=== PATIENT | female | born 1990 | race Caucasian/White ===

== ENCOUNTER 2016-12-07 12:56 | Emergency (ER) | payer MEDICAID ==
[~2016-12-07] VITALS: Ht 160 cm; Wt 85.8 kg
[~2016-12-07 12:56] MED LIST: AUGM875T PO
[2016-12-07 13:00] VITALS: BP 124/84; PULSE 88; RESP 16; TEMP 98.2; O2SAT 99
[2016-12-07 13:19] LABS: BLOOD, URINE NEG (NEG); GLUCOSE,URINE NEG (NEG); KETONE, URINE NEG (NEG); NITRITE,URINE NEG (NEG)
[2016-12-07 13:25] LABS: METHOD OF COLLECTION CLEAN CATCH; URINE COLOR YELLOW (YELLW/STRAW)
[2016-12-07 13:26] LABS: BACTERIA, URINE FEW /hpf; COMMENT (UR) CULT NOT INDICATED; CULTURE IF INDICATED CULT NOT INDICATED; MUCUS URINE MANY /lpf (OCC); SQUAMOUS EPITHELIAL CELL URINE >8 /hpf (0-5); WBC, URINE 0-2 /hpf (0-5)
[2016-12-07] MEDS ORDERED: KETOROLAC TROMETHAMINE 30 MG/ML (IVP) VIAL IV PUSH ONE (13:30)
[2016-12-07] MEDS ORDERED: SODIUM CHLOR 0.9% 1000 ML INJ 1,000 ML IV ONE (13:30)
[2016-12-07 13:50] LABS: AUTOMATED NEUTROPHIL # 10.7 TH/MM3 (1.8-7.7); BASOPHIL # 0.1 TH/MM3 (0-0.2); BASOPHIL % 0.4 % (0.0-2.0); EOSINOPHIL # 0.3 TH/MM3 (0-0.4); EOSINOPHIL % 2.4 % (0.0-4.0); HEMATOCRIT 41.4 % (35.0-46.0); HEMO FLAGS DIFF FINAL; LYMPH % 14.4 % (9.0-44.0); LYMPHOCYTE # 1.9 TH/MM3 (1.0-4.8); MEAN CELL VOLUME 87.4 FL (80.0-100.0); MEAN CORPUSCULAR HEMOGLOBIN 30.3 PG (27.0-34.0); MEAN CORPUSCULAR HGB CONC 34.7 % (32.0-36.0); MONO % 3.7 % (0.0-8.0); NEUT % 79.1 % (16.0-70.0); PLATELET COUNT 316 TH/MM3 (150-450); RED BLOOD COUNT 4.74 MIL/MM3 (4.00-5.30); RED CELL DISTRIBUTION WIDTH 12.9 % (11.6-17.2); WHITE BLOOD COUNT 13.5 TH/MM3 (4.0-11.0)
[2016-12-07 13:57] LABS: POTASSIUM 3.8 MEQ/L (3.5-5.1)
[2016-12-07 14:00] LABS: BICARBONATE 25.9 MEQ/L (21.0-32.0)
--- NOTE | 2016-12-07 14:11 | RADHPO ---
EXAM DATE/TIME: 12/07/2016 13:38 [facility] COMPARISON: CT ABDOMEN & PELVIS W/O CONTRAST, April 02, 2015, 12:00. INDICATIONS : Left flank pain. ORAL CONTRAST: No oral contrast ingested. RADIATION DOSE: 24.37 CTDIvol (mGy) MEDICAL HISTORY : None SURGICAL HISTORY : Orthopedic surgery. ENCOUNTER: Initial ACUITY: 2 days PAIN SCALE: 4/10 LOCATION: Left flank TECHNIQUE: Volumetric scanning of the abdomen and pelvis was performed. Using automated exposure control and ad justment of the mA and/or kV according to patient size, radiation dose was kept as low as reasonably achievable to obtain optimal diagnostic quality images. FINDINGS: LOWER LUNGS: The visualized lower lungs are clear. LIVER: Homogeneous density without lesion. There is no dilation of the biliary tree. No calcified gallston es. SPLEEN: Normal size without lesion. PANCREAS: Within normal limits. KIDNEYS: Normal in size and shape. There is no hydronephrosis. There are no right renal calculi. There are 2 small 1 mm nonobstructing left renal calculi. The ureters are unremarkable. ADRENAL GLANDS: Within normal limits. VASCULAR: There is no aortic aneurysm. BOWEL/MESENTERY: The stomach, small bowel, and colon demonstrate no acute abnormality. There is no free intraperitone al air. Small amount of fluid is again noted in the cul-de-sac. This is not significantly changed fro m the prior study. ABDOMINAL WALL: Within normal limits. RETROPERITONEUM: There is no lymphadenopathy. BLADDER: No wall thickening or mass. REPRODUCTIVE: Within normal limits. INGUINAL: There is no lymphadenopathy or hernia. MUSCULOSKELETAL: Within normal limits for patient age. CONCLUSION: 1. 2 small nonobstructing left renal calculi with no evidence of hydronephrosis. 2. Small amount of fluid in the pelvis not significantly changed from the prior study. Ramiro Montague MD on December 07, 2016 at 13:56 Board Certified Radiologist. This report was verified electronically.
[2016-12-07 14:26] VITALS: BP 103/61; PULSE 83; RESP 18; O2SAT 98
[2016-12-07] MEDS ORDERED: TAMS5CAP PO (14:49)
[2016-12-07] MEDS ORDERED: IBUP-232 PO (14:49)
[2016-12-07] MEDS ORDERED: NORC5TAB PO (14:49)
--- NOTE | 2016-12-07 14:50 | PD ---
HPI Chief Complaint: Flank/Kidney Pain Time Seen by Provider: 13:11 Travel History International Travel<30 days: No Contact w/Intl Traveler<30days: No Traveled to known affect area: No History of Present Illness HPI Patient is a 26 year old female who comes in complaining of left flank pain. She says the pain started 2 days ago. She says it similar to pain she's had in the past with kidney stones. She says the pain does not radiate anywhere. She denies any nausea or vomiting. She denies any dysuria. She denies any hematuria. She took some Tylenol yesterday for pain without relief. PFSH Past Medical History Cancer: No Diminished Hearing: No Endocrine: No Genitourinary: Yes Immune Disorder: No Kidney Stones: Yes Musculoskeletal: No Neurologic: No Psychiatric: No Reproductive: No Respiratory: No Immunizations Current: Yes (UTD) Migraines: Yes Tetanus Vaccination: < 5 Years Influenza Vaccination: No ?: Not LMP: 04 30-17 Menopausal: No : 3 Para: 3 Social History Alcohol Use: No Tobacco Use: Yes (1/2 PK) Substance Use: No Allergies-Medications (Allergen,Severity, Reaction): Coded Allergies: No Known Allergies (Verified , 12/07/16) Reported Meds & Prescriptions Reported Meds & Active Scripts Active Cantrall (Hydrocodone-Acetaminophen) 5-325 mg Tab 1 Tab PO Q6H PRN Ibuprofen 600 Mg Tab 600 Mg PO Q6H PRN Flomax (Tamsulosin HCl) 0.4 Mg Cap 0.4 Mg PO HS Review of Systems Except as stated in HPI: all other systems reviewed are Neg General / Constitutional: No: Fever, Chills HENT: No: Headaches, Lightheadedness Cardiovascular: No: Chest Pain or Discomfort Respiratory: No: Shortness of Breath Gastrointestinal: No: Nausea, Vomiting, Abdominal Pain Genitourinary: Positive: Flank Pain, No: Dysuria Musculoskeletal: No: Myalgias Skin: No Rash, No Change in Pigmentation Neurologic: No: Weakness, Dizziness Physical Exam Narrative GENERAL: Awake and alert, in no acute distress. SKIN: Focused skin assessment warm/dry. HEAD: Atraumatic. Normocephalic. EYES: Pupils equal and round. No scleral icterus. ENT: Mucous membranes pink and moist. NECK: Trachea midline. No JVD. CARDIOVASCULAR: Regular rate and rhythm. No murmur appreciated. RESPIRATORY: No accessory muscle use. Clear to auscultation. Breath sounds equal bilaterally. GASTROINTESTINAL: Abdomen soft, non-tender, nondistended. Left CVA tenderness. MUSCULOSKELETAL: No obvious deformities. No clubbing. No cyanosis. No edema. NEUROLOGICAL: Awake and alert. No obvious cranial nerve deficits. Motor grossly within normal limits. Normal speech. PSYCHIATRIC: Appropriate mood and affect; insight and judgment normal. Data Data Last Documented VS Vital Signs Date Time Temp Pulse Resp B/P Pulse Ox O2 Delivery O2 Flow Rate FiO2 12/07/16 14:26 83 18 103/61 98 Room Air 12/07/16 13:00 98.2 Orders Urinalysis - C+S If Indicated (12/07/16 13:11) Ed Urine Pregnancytest Poc (12/07/16 13:11) Complete Blood Count With Diff (12/07/16 13:16) Basic Metabolic Panel (Bmp) (12/07/16 13:16) Ct Abd/Pel W/O Iv Contrast (12/07/16 ) Ketorolac Inj (Toradol Inj) (12/07/16 13:30) Sodium Chlor 0.9% 1000 Ml Inj (Ns 1000 M (12/07/16 13:30) Labs Laboratory Tests Test 12/07/16 12/07/16 13:05 13:10 Urine Collection Type CLEAN CATCH Urine Color YELLOW Urine Turbidity CLEAR Urine pH 6.0 Urine Specific [place] 1.025 Urine Protein NEG mg/dL Urine Glucose (UA) NEG mg/dL Urine Ketones NEG mg/dL Urine Occult Blood NEG Urine Nitrite NEG Urine Bilirubin NEG Urine Leukocyte Esterase TRACE Urine WBC 0-2 /hpf Urine Squamous Epithelial >8 /hpf Cells Urine Bacteria FEW /hpf Urine Mucus MANY /lpf Microscopic Urinalysis Comment CULT NOT INDICATED White Blood Count 13.5 TH/MM3 Red Blood Count 4.74 MIL/MM3 Hemoglobin 14.4 GM/DL Hematocrit 41.4 % Mean Corpuscular Volume 87.4 FL Mean Corpuscular Hemoglobin 30.3 PG Mean Corpuscular Hemoglobin 34.7 % Concent Red Cell Distribution Width 12.9 % Platelet Count 316 TH/MM3 Mean Platelet Volume 8.4 FL Neutrophils (%) (Auto) 79.1 % Lymphocytes (%) (Auto) 14.4 % Monocytes (%) (Auto) 3.7 % Eosinophils (%) (Auto) 2.4 % Basophils (%) (Auto) 0.4 % Neutrophils # (Auto) 10.7 TH/MM3 Lymphocytes # (Auto) 1.9 TH/MM3 Monocytes # (Auto) 0.5 TH/MM3 Eosinophils # (Auto) 0.3 TH/MM3 Basophils # (Auto) 0.1 TH/MM3 CBC Comment DIFF FINAL Differential Comment Sodium Level 140 MEQ/L Potassium Level 3.8 MEQ/L Chloride Level 106 MEQ/L Carbon Dioxide Level 25.9 MEQ/L Anion Gap 8 MEQ/L Blood Urea Nitrogen 10 MG/DL Creatinine 0.61 MG/DL Estimat Glomerular Filtration 121 ML/MIN Rate Random Glucose 88 MG/DL Calcium Level 8.8 MG/DL MDM Medical Decision Making Medical Screen Exam Complete: Yes Emergency Medical Condition: Yes Medical Record Reviewed: Yes Differential Diagnosis UTI versus pyelonephritis versus kidney stone Narrative Course Patient is a 26-year-old female comes in complaining of left-sided flank pain. Exam shows left CVA tenderness. IV established, labs sent. Labs show normal creatinine. CT abdomen and pelvis performed shows 2 small nonobstructing stones. Patient given IV fluids and Toradol. She reports feeling better. Patient will be discharged with prescriptions for ibuprofen, Cantrall for severe pain, Flomax. She is advised to drink plenty of fluids. Advised follow-up with urology. Advised to return to the ED as needed for any worsening symptoms. Last 24 hours Impressions Abdomen/Pelvis CT 12/07/16 0000 Signed Impressions: Service Date/Time: Wednesday, December 07, 2016 13:38 - CONCLUSION: 1. 2 small nonobstructing left renal calculi with no evidence of hydronephrosis. 2. Small amount of fluid in the pelvis not significantly changed from the prior study. Ramiro Montague MD Diagnosis Primary Impression: Renal stone Referrals: Mir Dominguez MD call for appointment Patient Instructions: General Instructions, Kidney Stones (ED) Additional Instructions: Follow up with urology. Take Ibuprofen for pain, Cantrall for severe pain. Drink plenty of fluids. Return to the ED as needed for any worsening symptoms. Scripts Hydrocodone-Acetaminophen (Cantrall)5-325 mg Tab1 Tab PO Q6H PRN (PAIN) #10 TAB Ref 0 Prov:Gela Howe MD 12/07/16 Ibuprofen 600 Mg [id number] Mg PO Q6H PRN (Pain/Inflammation) #20 TAB Ref 0 Prov:Gela Howe MD 12/07/16 Tamsulosin (Flomax)0.4 Mg Cap0.4 Mg PO HS #7 CAP Ref 0 Prov:Gela Howe MD 12/07/16 Disposition: 01 DISCHARGE HOME Condition: Stable Gela Howe MD December 07, 2016 14:49
== END 2016-12-07 15:18 | disposition home or self-care (01) ==
LOC: PHED 12:56
DX: N20.0 Calculus of kidney (principal); F17.210 Nicotine dependence, cigarettes, uncomplicated
CPT/HCPCS: 74176; 80048; 81001; 84703; 85025; 96374; 99285; J1885; J7030

== ENCOUNTER 2017-02-10 18:44 | Emergency (ER) | payer MEDICAID ==
[~2017-02-10] VITALS: Ht 172.7 cm; Wt 68.0 kg
[~2017-02-10 18:44] MED LIST changes: -AUGM875T PO; +IBUP-232 PO; +NORC5TAB PO; +TAMS5CAP PO
[2017-02-10 18:46] VITALS: BP 127/73; PULSE 86; RESP 20; TEMP 98.1; O2SAT 98
--- NOTE | 2017-02-10 21:59 | PD ---
HPI Chief Complaint: Flank/Kidney Pain Time Seen by Provider: 21:23 Travel History International Travel<30 days: No Contact w/Intl Traveler<30days: No Traveled to known affect area: No History of Present Illness HPI This patient reports that she thinks she may have a kidney stone. She complains of some left flank pain for 2 days. Symptoms severity is mild to moderate. No fever or injury. She has history of multiple kidney stones. She also thinks she might be . She took 2 home tests and one was positive and one was negative. She says if she is she wants to have an . No alleviating factors. PFSH Past Medical History Cancer: No Diminished Hearing: No Endocrine: No Genitourinary: Yes Immune Disorder: No Kidney Stones: Yes Musculoskeletal: No Neurologic: No Psychiatric: No Reproductive: No Respiratory: No Immunizations Current: Yes (UTD) Migraines: Yes Menopausal: No : 3 Para: 3 Social History Alcohol Use: No Tobacco Use: Yes (/2 PK) Substance Use: No Allergies-Medications (Allergen,Severity, Reaction): Coded Allergies: No Known Allergies (Verified , 02/10/17) Reported Meds & Prescriptions Reported Meds & Active Scripts Active Review of Systems General / Constitutional: No: Fever Eyes: No: Visual changes HENT: No: Headaches Cardiovascular: No: Chest Pain or Discomfort Respiratory: No: Shortness of Breath Gastrointestinal: No: Abdominal Pain Genitourinary: Positive: Flank Pain, No: Dysuria Musculoskeletal: No: Pain Skin: No Rash Neurologic: No: Weakness Psychiatric: No: Depression Endocrine: No: Polydipsia Hematologic/Lymphatic: No: Easy Bruising Physical Exam Narrative GENERAL: Well-nourished, well-developed patient in no apparent distress. SKIN: Focused skin assessment reveals no rash and nodules. Skin is Warm and dry. HEAD: Atraumatic. Normocephalic. EYES: Pupils equal and round. No scleral icterus. No injection or drainage. ENT: No nasal bleeding or discharge. Mucous membranes pink and moist. NECK: Trachea midline. No JVD. CARDIOVASCULAR: Regular rate and rhythm. No murmur appreciated. RESPIRATORY: No accessory muscle use. Clear to auscultation. Breath sounds equal bilaterally. GASTROINTESTINAL: Abdomen soft, non-tender, nondistended. Hepatic and splenic margins not palpable. MUSCULOSKELETAL: No obvious deformities. No clubbing. No cyanosis. No edema. NEUROLOGICAL: Awake and alert. No obvious cranial nerve deficits. Motor grossly within normal limits. Normal speech. PSYCHIATRIC: Appropriate mood and affect; insight and judgment normal. Data Data Last Documented VS Vital Signs Date Time Temp Pulse Resp B/P Pulse Ox O2 Delivery O2 Flow Rate FiO2 02/10/17 22:02 76 18 112/62 99 Room Air 02/10/17 18:46 98.1 Orders Urinalysis - C+S If Indicated (02/10/17 19:36) Ed Urine Pregnancytest Poc (02/10/17 21:49) Labs Laboratory Tests Test 02/10/17 21:15 Urine Color LIGHT-YELLOW Urine Turbidity CLEAR Urine pH 7.5 Urine Specific [place] 1.012 Urine Protein NEG mg/dL Urine Glucose (UA) NEG mg/dL Urine Ketones NEG mg/dL Urine Occult Blood NEG Urine Nitrite NEG Urine Bilirubin NEG Urine Urobilinogen LESS THAN 2.0 MG/DL Urine Leukocyte Esterase SMALL Urine RBC 2 /hpf Urine WBC 1 /hpf Urine Squamous Epithelial 1 /hpf Cells Microscopic Urinalysis Comment CULT NOT INDICATED MDM Medical Decision Making Medical Screen Exam Complete: Yes Emergency Medical Condition: Yes Medical Record Reviewed: Yes Differential Diagnosis Kidney stone, sciatica, UTI Narrative Course I have reviewed the patient's electronic medical record. Urinalysis is normal Urine is positive Patient looks asymptomatic on recheck. Stable for outpatient follow-up I recommended TECHNOLOGY CONSULTANT follow-up Diagnosis Primary Impression: Patient currently Qualified Code: Z3A.01 - Less than 8 weeks gestation of Additional Impression: Acute left flank pain Additional Instructions: Follow-up with TECHNOLOGY CONSULTANT Med/Other Pt SpecificInfo: Other Disposition: 01 DISCHARGE HOME Condition: Stable Dannie Smith MD Feb 10, 2017 21:59
[2017-02-10 22:02] VITALS: BP 112/62; PULSE 76; RESP 18; O2SAT 99
[2017-02-10 22:20] LABS: BLOOD, URINE NEG (NEG); COMMENT (UR) CULT NOT INDICATED; CULTURE IF INDICATED CULT NOT INDICATED; GLUCOSE,URINE NEG (NEG); KETONE, URINE NEG (NEG); NITRITE,URINE NEG (NEG); PH, URINE 7.5 (5.0-8.5); SQUAMOUS EPITHELIAL CELL URINE 1 /hpf (0-5); URINE COLOR LIGHT-YELLOW (YELLW/STRAW)
== END 2017-02-10 23:13 | disposition home or self-care (01) ==
LOC: NEPD 18:44
DX: O26.899 Other specified pregnancy related conditions, unspecified trimester (principal); R10.9 Unspecified abdominal pain; Z3A.01 Less than 8 weeks gestation of pregnancy; Z87.442 Personal history of urinary calculi; O99.334 Smoking (tobacco) complicating childbirth
CPT/HCPCS: 81001; 84703; 99283

== ENCOUNTER 2017-02-14 11:54 | Emergency (ER) | payer MEDICAID ==
[2017-02-14 12:02] VITALS: BP 138/86; PULSE 68; RESP 18; TEMP 98.2; O2SAT 98
[2017-02-14] MEDS ORDERED: ONDANSETRON ODT 4 MG TAB PO ONE (12:30)
--- NOTE | 2017-02-14 12:43 | PD ---
HPI Chief Complaint: GI Complaint Time Seen by Provider: 12:21 Travel History International Travel<30 days: No Contact w/Intl Traveler<30days: No Traveled to known affect area: No History of Present Illness HPI Patient presents with complaints of hyperemesis. Symptom onset 2 weeks. States she 2 or 3 weeks . 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 She is compliant with vitamins. Denies any urinary or bowel symptoms. Denies any chest pain or shortness of breath. PFSH Past Medical History Cancer: No Diminished Hearing: No Endocrine: No Genitourinary: Yes Immune Disorder: No Kidney Stones: Yes Musculoskeletal: No Neurologic: No Psychiatric: No Reproductive: No Respiratory: No Immunizations Current: Yes (UTD) Migraines: Yes ?: LMP: 12/31/16 Menopausal: No : 4 Para: 3 Past Surgical History Other Surgery: Yes (kidney stone sx pt unsure what it was) Social History Alcohol Use: No Tobacco Use: No Substance Use: No Allergies-Medications (Allergen,Severity, Reaction): Coded Allergies: No Known Allergies (Verified , 02/14/17) Reported Meds & Prescriptions Reported Meds & Active Scripts Active No Active Prescriptions or Reported Medications Review of Systems General / Constitutional: No: Fever Eyes: No: Visual changes HENT: No: Headaches Cardiovascular: No: Chest Pain or Discomfort Respiratory: No: Shortness of Breath Gastrointestinal: Positive: Nausea, Vomiting, No: Abdominal Pain Genitourinary: No: Dysuria Musculoskeletal: No: Pain Skin: No Rash Neurologic: No: Weakness Psychiatric: No: Depression Endocrine: No: Polydipsia Hematologic/Lymphatic: No: Easy Bruising Physical Exam Narrative GENERAL: Well-nourished, well-developed patient. SKIN: Focused skin assessment warm/dry. HEAD: Normocephalic. EYES: No scleral icterus. No injection or drainage. NECK: Supple, trachea midline. No JVD or lymphadenopathy. CARDIOVASCULAR: Regular rate and rhythm without murmurs, gallops, or rubs. RESPIRATORY: Breath sounds equal bilaterally. No accessory muscle use. GASTROINTESTINAL: Abdomen soft, non-tender, nondistended. MUSCULOSKELETAL: No cyanosis, or edema. BACK: Nontender without obvious deformity. No CVA tenderness. Data Data Last Documented VS Vital Signs Date Time Temp Pulse Resp B/P Pulse Ox O2 Delivery O2 Flow Rate FiO2 02/14/17 12:02 98.2 68 18 138/86 98 Orders Urinalysis - C+S If Indicated (02/14/17 11:59) Ondansetron Odt (Zofran Odt) (02/14/17 12:30) Labs Laboratory Tests Test 02/14/17 12:50 Urine Collection Type CLEAN CATCH Urine Color YELLOW Urine Turbidity CLEAR Urine pH 8.0 Urine Specific [place] 1.014 Urine Protein NEG mg/dL Urine Glucose (UA) NEG mg/dL Urine Ketones NEG mg/dL Urine Occult Blood NEG Urine Nitrite NEG Urine Bilirubin NEG Urine Leukocyte Esterase TRACE Urine WBC 0-2 /hpf Urine Squamous Epithelial 6-8 /hpf Cells Microscopic Urinalysis Comment CULT NOT INDICATED Urine Collection Time 12:50 MDM Medical Decision Making Medical Screen Exam Complete: Yes Emergency Medical Condition: Yes Differential Diagnosis Hyperemesis gravidarum, enteritis, reflux Narrative Course Assessment and plan discussed with patient at bedside. Zofran provided, tolerated fluid challenge Diagnosis Primary Impression: Hyperemesis gravidarum Patient Instructions: General Instructions Additional Instructions: Rest fluids and Tylenol as needed anti-emetic as needed. Follow-up with OB. Start vitamin. Return to the ER with any onset of new symptoms Med/Other Pt SpecificInfo: Prescription(s) given Scripts Ondansetron Odt (Zofran Odt)4 Mg Tab4 Mg SL Q6HR PRN (Nausea/Vomiting) #20 TAB Ref 0 Prov:Praveen Higgins MD 02/14/17 Disposition: 01 DISCHARGE HOME Condition: Good Praveen Higgins MD Feb 14, 2017 12:43
[2017-02-14 12:58] LABS: BLOOD, URINE NEG (NEG); GLUCOSE,URINE NEG (NEG); KETONE, URINE NEG (NEG); NITRITE,URINE NEG (NEG)
[2017-02-14 13:03] LABS: METHOD OF COLLECTION CLEAN CATCH; URINE COLOR YELLOW (YELLW/STRAW)
[2017-02-14 13:04] LABS: COMMENT (UR) CULT NOT INDICATED; CULTURE IF INDICATED CULT NOT INDICATED; WBC, URINE 0-2 /hpf (0-5)
[2017-02-14] MEDS ORDERED: ZOFR4TAB3 SL (13:46)
[2017-02-14 13:54] VITALS: BP 128/68
== END 2017-02-14 13:58 | disposition home or self-care (01) ==
LOC: PHED 11:54
DX: O21.0 Mild hyperemesis gravidarum (principal); Z3A.01 Less than 8 weeks gestation of pregnancy
CPT/HCPCS: 81001; 99283

== ENCOUNTER 2017-05-26 21:26 | Emergency (ER) | payer MEDICAID ==
[~2017-05-26] VITALS: Ht 160 cm; Wt 85.0 kg
[~2017-05-26 21:26] MED LIST changes: -IBUP-232 PO; -NORC5TAB PO; -TAMS5CAP PO; +ZOFR4TAB3 SL
[2017-05-26 21:33] VITALS: BP 122/82; PULSE 100; RESP 20; TEMP 97.8; O2SAT 98
[2017-05-26] MEDS ORDERED: SODIUM CHLOR 0.9% 1000 ML INJ 1,000 ML IV SCH (21:47)
--- NOTE | 2017-05-26 21:55 | PD ---
HPI Chief Complaint: Flank/Kidney Pain Time Seen by Provider: 21:40 Travel History International Travel<30 days: No Contact w/Intl Traveler<30days: No Traveled to known affect area: No History of Present Illness HPI 26-year-old female complains of bilateral flank pain and urinary frequency. Patient states that the symptoms started this afternoon. Patient denies any headache. Patient denies any chest pain or shortness of breath. Patient denies abdominal pain. Patient states the pain localized to mid back bilateral flank area. Patient states the pain has been intermittent cramping pain. Patient denies any pain radiation. Patient states the pain is worse with movement. Patient denies any focal weakness or numbness of extremity. Patient denies any chance of being . Patient has history kidney stone in the past. PFSH Past Medical History Cancer: No Diminished Hearing: No Endocrine: No Genitourinary: Yes Immune Disorder: No Kidney Stones: Yes Musculoskeletal: No Neurologic: No Psychiatric: No Reproductive: No Respiratory: No Immunizations Current: Yes (UTD) Migraines: Yes Menopausal: No : 4 Para: 3 Past Surgical History Other Surgery: Yes (kidney stone sx pt unsure what it was) Social History Alcohol Use: No Tobacco Use: No Substance Use: No Allergies-Medications (Allergen,Severity, Reaction): Coded Allergies: No Known Allergies (Verified Adverse Reaction, Unknown, 05/26/17) Reported Meds & Prescriptions Reported Meds & Active Scripts Active Review of Systems General / Constitutional: No: Fever Eyes: No: Visual changes HENT: No: Headaches Cardiovascular: No: Chest Pain or Discomfort Respiratory: No: Shortness of Breath Gastrointestinal: No: Abdominal Pain Genitourinary: No: Dysuria Musculoskeletal: No: Pain Skin: No Rash Neurologic: No: Weakness Psychiatric: No: Depression Endocrine: No: Polydipsia Hematologic/Lymphatic: No: Easy Bruising Physical Exam Narrative GENERAL: Well-nourished, well-developed patient. SKIN: Focused skin assessment warm/dry. HEAD: Normocephalic. EYES: No scleral icterus. No injection or drainage. NECK: Supple, trachea midline. No JVD or lymphadenopathy. CARDIOVASCULAR: Regular rate and rhythm without murmurs, gallops, or rubs. RESPIRATORY: Breath sounds equal bilaterally. No accessory muscle use. GASTROINTESTINAL: Abdomen soft, non-tender, nondistended. MUSCULOSKELETAL: No cyanosis, or edema. BACK: Patient has mild to moderate tenderness on palpation lower thoracic and upper lumbar area especially the right flank area without obvious deformity. Neurologic exam normal. Data Data Last Documented VS Vital Signs Date Time Temp Pulse Resp B/P (MAP) Pulse Ox O2 Delivery O2 Flow Rate FiO2 05/26/17 22:38 20 05/26/17 21:33 97.8 100 122/82 (95) 98 Orders Orders Complete Blood Count With Diff (05/26/17 21:47) Comprehensive Metabolic Panel (05/26/17 21:47) Urinalysis - C+S If Indicated (05/26/17 21:47) Ct Abd/Pel W/O Iv Contrast (05/26/17:47) Oximetry (05/26/17:47) Sodium Chlor 0.9% 1000 Ml Inj (Ns 1000 M (05/26/17 21:47) Sodium Chloride 0.9% Flush (Ns Flush) (05/26/17 22:00) Ketorolac Inj (Toradol Inj) (05/26/17 22:00) Ed Urine Pregnancytest Poc (05/26/17 22:01) Urine Culture (05/26/17 22:05) Ed Discharge Order (05/26/17 23:41) Labs Laboratory Tests Test 05/26/17 22:05 05/26/17 22:10 Urine Color STRAW Urine Turbidity CLOUDY Urine pH 7.0 Urine Specific [place] 1.022 Urine Protein NEG mg/dL Urine Glucose (UA) NEG mg/dL Urine Ketones NEG mg/dL Urine Occult Blood TRACE Urine Nitrite NEG Urine Bilirubin NEG Urine Leukocyte Esterase MOD Urine RBC 0-3 /hpf Urine WBC 9-14 /hpf Urine Squamous Epithelial Cells > 8 /hpf Urine Amorphous Sediment MOD Urine Bacteria FEW /hpf Microscopic Urinalysis Comment CULTURE INDICATED White Blood Count 12.5 TH/MM3 Red Blood Count 5.13 MIL/MM3 Hemoglobin 15.3 GM/DL Hematocrit 45.1 % Mean Corpuscular Volume 87.9 FL Mean Corpuscular Hemoglobin 29.8 PG Mean Corpuscular Hemoglobin Concent 33.9 % Red Cell Distribution Width 12.4 % Platelet Count 380 TH/MM3 Mean Platelet Volume 8.0 FL Neutrophils (%) (Auto) 74.4 % Lymphocytes (%) (Auto) 18.9 % Monocytes (%) (Auto) 4.2 % Eosinophils (%) (Auto) 1.9 % Basophils (%) (Auto) 0.6 % Neutrophils # (Auto) 9.3 TH/MM3 Lymphocytes # (Auto) 2.4 TH/MM3 Monocytes # (Auto) 0.5 TH/MM3 Eosinophils # (Auto) 0.2 TH/MM3 Basophils # (Auto) 0.1 TH/MM3 CBC Comment DIFF FINAL Differential Comment Blood Urea Nitrogen 14 MG/DL Creatinine 0.69 MG/DL Random Glucose 94 MG/DL Total Protein 8.3 GM/DL Albumin 4.1 GM/DL Calcium Level 9.0 MG/DL Alkaline Phosphatase 86 U/L Aspartate Amino Transf (AST/SGOT) 14 U/L Alanine Aminotransferase (ALT/SGPT) 30 U/L Total Bilirubin 0.2 MG/DL Sodium Level 138 MEQ/L Potassium Level 3.5 MEQ/L Chloride Level 102 MEQ/L Carbon Dioxide Level 32.2 MEQ/L Anion Gap 4 MEQ/L Estimat Glomerular Filtration Rate 105 ML/MIN MDM Medical Decision Making Medical Screen Exam Complete: Yes Emergency Medical Condition: Yes Interpretation(s) 22:50 PM. CBC WBC 12.5. 74 neutrophil. CMP within normal limit. UA positive for WBC and bacteria. Urine test negative. Differential Diagnosis Differential diagnosis including musculoskeletal, pyelonephritis, nephrolithiasis. Narrative Course 26-year-old female with bilateral flank pain especially right flank. History of kidney stone in the past. Normal saline solution 1 25 cc an hour. Toradol 30 mg IV. Diagnosis Primary Impression: Back pain Qualified Codes: M54.9 - Dorsalgia, unspecified Additional Impression: UTI (urinary tract infection) Patient Instructions: General Instructions Additional Instructions: Take medications as directed. Moist heat to the back. Follow-up with personal physician. Return if worse. Med/Other Pt SpecificInfo: Prescription(s) given Scripts Methocarbamol (Robaxin) 750 Mg Tab 750 MG PO QID for Muscle Spasm, #40 TAB 0 Refills Prov: William Kang MD 05/26/17 Meloxicam (Mobic) 15 Mg Tab 15 MG PO DAILY for Pain, #20 TAB 0 Refills Prov: William Kang MD 05/26/17 Sulfamethoxazole-Trimethoprim (Bactrim DS) 800-160 Mg Tab 1 TAB PO BID for Infection, #6 TAB 0 Refills Prov: William Kang MD 05/26/17 Disposition: 01 DISCHARGE HOME Condition: Stable William Kang MD May 26, 2017 21:55
[2017-05-26] MEDS ORDERED: KETOROLAC TROMETHAMINE 30 MG/ML (IVP) VIAL IVP ONE (22:00)
[2017-05-26] MEDS ORDERED: SODIUM CHLORIDE 0.9% FLUSH 10 ML FLUSH IV FLUSH PRN (22:00)
[2017-05-26 22:13] LABS: BLOOD, URINE TRACE (NEG); GLUCOSE,URINE NEG (NEG); KETONE, URINE NEG (NEG); NITRITE,URINE NEG (NEG)
[2017-05-26 22:16] LABS: URINE COLOR STRAW (YELLW/STRAW)
[2017-05-26 22:17] LABS: BACTERIA, URINE FEW /hpf; RBC, URINE 0-3 /hpf (0-3); SQUAMOUS EPITHELIAL CELL URINE > 8 /hpf (0-5)
[2017-05-26 22:18] LABS: COMMENT (UR) CULTURE INDICATED; CULTURE IF INDICATED CULTURE INDICATED
[2017-05-26 22:20] LABS: AUTOMATED NEUTROPHIL # 9.3 TH/MM3 (1.8-7.7); BASOPHIL # 0.1 TH/MM3 (0-0.2); BASOPHIL % 0.6 % (0.0-2.0); EOSINOPHIL # 0.2 TH/MM3 (0-0.4); EOSINOPHIL % 1.9 % (0.0-4.0); HEMATOCRIT 45.1 % (35.0-46.0); HEMO FLAGS DIFF FINAL; LYMPH % 18.9 % (9.0-44.0); LYMPHOCYTE # 2.4 TH/MM3 (1.0-4.8); MEAN CELL VOLUME 87.9 FL (80.0-100.0); MEAN CORPUSCULAR HEMOGLOBIN 29.8 PG (27.0-34.0); MEAN CORPUSCULAR HGB CONC 33.9 % (32.0-36.0); MONO % 4.2 % (0.0-8.0); NEUT % 74.4 % (16.0-70.0); PLATELET COUNT 380 TH/MM3 (150-450); RED BLOOD COUNT 5.13 MIL/MM3 (4.00-5.30); RED CELL DISTRIBUTION WIDTH 12.4 % (11.6-17.2); WHITE BLOOD COUNT 12.5 TH/MM3 (4.0-11.0)
[2017-05-26 22:28] LABS: CHLORIDE 102 MEQ/L (98-107); POTASSIUM 3.5 MEQ/L (3.5-5.1); SODIUM (NA) 138 MEQ/L (136-145)
[2017-05-26 22:32] LABS: ANION GAP 4 MEQ/L (5-15); BICARBONATE 32.2 MEQ/L (21.0-32.0); BLOOD UREA NITROGEN 14 MG/DL (7-18)
[2017-05-26 22:35] LABS: ALT (GPT) 30 U/L (10-53); AST (GOT) 14 U/L (15-37); GLOMERULAR FILTRATION RATE 105 ML/MIN (>89)
[2017-05-26 22:36] LABS: TOTAL BILIRUBIN ADULT 0.2 MG/DL (0.2-1.0)
[2017-05-26 22:38] LABS: ALKALINE PHOSPHATASE 86 U/L (45-117)
[2017-05-26 22:50] VITALS: BP 120/74; PULSE 84; RESP 20; O2SAT 98
--- NOTE | 2017-05-26 23:44 | RADRPT ---
EXAM DATE/TIME: 05/26/2017 23:05 [facility] COMPARISON: CT ABDOMEN & PELVIS W/O CONTRAST, December 07, 2016, 13:38. INDICATIONS : Right flank pain. ORAL CONTRAST: No oral contrast ingested. RADIATION DOSE: 25.18 CTDIvol (mGy) ; High dose protocol MEDICAL HISTORY : Renal calculi. SURGICAL HISTORY : None. ENCOUNTER: Initial ACUITY: 1 day PAIN SCALE: 8/10 LOCATION: Right flank TECHNIQUE: Volumetric scanning of the abdomen and pelvis was performed. Using automated exposure control and ad justment of the mA and/or kV according to patient size, radiation dose was kept as low as reasonably achievable to obtain optimal diagnostic quality images. DICOM format image data is available electro nically for review and comparison. FINDINGS: Examination of the lung bases demonstrates no abnormality. No pleural fluid is identified. No pulmona ry nodules are present. The liver and spleen are normal in size and no focal defects are identified. There is a single stone within the gallbladder without wall thickening or pericholecystic fluid measu ring 2 mm. The adrenal glands are unremarkable. The right kidney is unremarkable. There are two stone s within the left kidney without hydronephrosis measuring 2 mm. Examination of the pelvis demonstrates no evidence of free fluid or pelvic mass. No abnormally enlarg ed inguinal or retroperitoneal lymph nodes are present. The bladder is unremarkable. 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 No evidence of acute abdominal or pelvic process. No masses are identified. 2. Cholelithiasis 3. Nonobstructing left renal stones Saleem Zabala MD on May 26, 2017 at 23:38 Board Certified Radiologist. This report was verified electronically.
[2017-05-26] MEDS ORDERED: BACT800T5 PO (23:45)
[2017-05-26] MEDS ORDERED: ROBA750T PO (23:45)
[2017-05-26] MEDS ORDERED: MOBI15TA PO (23:45)
[2017-05-27 00:19] VITALS: BP 116/70
== END 2017-05-27 00:23 | disposition home or self-care (01) ==
LOC: PHED 21:26
DX: N39.0 Urinary tract infection, site not specified (principal); M54.9 Dorsalgia, unspecified; B96.89 Other specified bacterial agents as the cause of diseases classified elsewhere; Z87.442 Personal history of urinary calculi
CPT/HCPCS: 74176; 80053; 81001; 84703; 85025; 87086; 96361; 96374; 99285; J1885; J7030

== ENCOUNTER → 2017-11-12 | Emergency (ER) | payer MEDICAID ==
[~2017-11-12] VITALS: Ht 160 cm; Wt 68.0 kg
[~2017-11-12] MED LIST changes: +BACT800T5 PO; +METOCLOPRAMIDE HCL 10 MG/2 ML VIAL IV PUSH ONE; +MOBI15TA PO; +ONDANSETRON HCL 4 MG/2 ML VIAL IVP ONE; +ROBA750T PO; +SODIUM CHLOR 0.9% 1000 ML INJ 1,000 ML IV ONE; +SODIUM CHLOR 0.9% 1000 ML INJ 1,000 ML IV SCH; +SODIUM CHLORIDE 0.9% FLUSH 10 ML FLUSH IV FLUSH PRN; +THIAMINE INJ 100 MG in SODIUM CHLORIDE 0.9% INJ 100 ML IV ONE; -ZOFR4TAB3 SL
[2017-11-12 14:42] VITALS: BP 124/94; PULSE 95; RESP 18; TEMP 98.3; O2SAT 97
--- NOTE | 2017-11-12 15:41 | PD ---
HPI Chief Complaint: Related Problem Time Seen by Provider: 14:59 Travel History International Travel<30 days: No Contact w/Intl Traveler<30days: No Traveled to known affect area: No History of Present Illness HPI 27-year-old female who reports to be 17 weeks , presents emergency department with four-day history of general malaise, nausea, decreased appetite, and right flank pain since yesterday. Patient denies fever , chills, vomiting, or diarrhea. Patient denies vaginal bleeding or cramping. Patient states history of kidney stones in the past. She denies dysuria or obvious hematuria. Patient reports that her son was recently ill last week and treated at [facility], [place] Past Medical History Cancer: No Diminished Hearing: No Endocrine: No Genitourinary: Yes Immune Disorder: No Kidney Stones: Yes Musculoskeletal: No Neurologic: No Psychiatric: No Reproductive: No Respiratory: No Immunizations Current: Yes (UTD) Migraines: Yes ?: LMP: 07/20/17 Menopausal: No : 4 Para: 3 : 1 Past Surgical History Surgical History: No Previous Surgery Neurologic Surgery: No Other Surgery: Yes (HX KIDNEY STONE ) Social History Alcohol Use: No Tobacco Use: No Substance Use: No Allergies-Medications (Allergen,Severity, Reaction): Coded Allergies: No Known Allergies (Verified Adverse Reaction, Unknown, 11/12/17) Reported Meds & Prescriptions Reported Meds & Active Scripts Active No Active Prescriptions or Reported Medications Physical Exam Narrative GENERAL: Patient appears ill but not septic. SKIN: Warm and dry. Normal color. Normal turgor. HEAD: Atraumatic. Normocephalic. EYES: Pupils equal and round. No scleral icterus. No injection or drainage. ENT: No nasal bleeding or discharge. Mucous membranes pink and moist. TMs are clear bilaterally. No sinus tenderness to palpation or percussion. Pharynx is clear. Airways patent. NECK: Trachea midline. Supple and nontender. CARDIOVASCULAR: Regular rate and rhythm. RESPIRATORY: No accessory muscle use. Clear to auscultation. Breath sounds equal bilaterally. GASTROINTESTINAL: Abdomen soft, non-tender, nondistended. Gravid uterus. Hepatic and splenic margins not palpable. Mild right-sided flank tenderness. MUSCULOSKELETAL: Extremities without clubbing, cyanosis, or edema. No obvious deformities. NEUROLOGICAL: Awake and alert. No obvious cranial nerve deficits. Motor grossly within normal limits. Five out of 5 muscle strength in the arms and legs. Normal speech. PSYCHIATRIC: Appropriate mood and affect; insight and judgment normal. Data Data Last Documented VS Vital Signs Date Time Temp Pulse Resp B/P (MAP) Pulse Ox O2 Delivery O2 Flow Rate FiO2 11/12/17 16:18 88 16 119/59 (79) 99 Room Air 11/12/17 14:42 98.3 Orders Orders Beta Hcg (Quant/Titer) (11/12/17 14:59) Complete Blood Count With Diff (11/12/17 14:59) Comprehensive Metabolic Panel (11/12/17 14:59) Type And Screen (11/12/17 14:59) Urinalysis - C+S If Indicated (11/12/17 14:59) Iv Access Insert/Monitor (11/12/17 15:16) Ecg Monitoring (11/12/17 15:16) Oximetry (11/12/17 15:16) Ondansetron Inj (Zofran Inj) (11/12/17 15:30) Sodium Chlor 0.9% 1000 Ml Inj (Ns 1000 M (11/12/17 15:16) Sodium Chloride 0.9% Flush (Ns Flush) (11/12/17 15:30) Us Kidney/Renal/Bladder (11/12/17 ) Ed Poc Ultrasound (11/12/17 ) Metoclopramide Inj (Reglan Inj) (11/12/17 16:15) Thiamine Inj (Thiamine Inj) (11/12/17 16:15) Sodium Chlor 0.9% 1000 Ml Inj (Ns 1000 M (11/12/17 16:15) Labs Laboratory Tests Test 11/12/17 15:24 11/12/17 16:53 White Blood Count 12.0 TH/MM3 Red Blood Count 4.51 MIL/MM3 Hemoglobin 13.9 GM/DL Hematocrit 39.5 % Mean Corpuscular Volume 87.7 FL Mean Corpuscular Hemoglobin 30.9 PG Mean Corpuscular Hemoglobin Concent 35.2 % Red Cell Distribution Width 13.5 % Platelet Count 321 TH/MM3 Mean Platelet Volume 8.0 FL Neutrophils (%) (Auto) 74.3 % Lymphocytes (%) (Auto) 16.9 % Monocytes (%) (Auto) 4.8 % Eosinophils (%) (Auto) 3.0 % Basophils (%) (Auto) 1.0 % Neutrophils # (Auto) 8.9 TH/MM3 Lymphocytes # (Auto) 2.0 TH/MM3 Monocytes # (Auto) 0.6 TH/MM3 Eosinophils # (Auto) 0.4 TH/MM3 Basophils # (Auto) 0.1 TH/MM3 CBC Comment DIFF FINAL Differential Comment Blood Urea Nitrogen 6 MG/DL Creatinine 0.55 MG/DL Random Glucose 86 MG/DL Total Protein 6.8 GM/DL Albumin 3.0 GM/DL Calcium Level 9.0 MG/DL Alkaline Phosphatase 52 U/L Aspartate Amino Transf (AST/SGOT) 15 U/L Alanine Aminotransferase (ALT/SGPT) 16 U/L Total Bilirubin 0.3 MG/DL Sodium Level 141 MEQ/L Potassium Level 3.7 MEQ/L Chloride Level 108 MEQ/L Carbon Dioxide Level 23.2 MEQ/L Anion Gap 10 MEQ/L Estimat Glomerular Filtration Rate 135 ML/MIN Human Chorionic Gonadotropin, Quant 05245 MIU/ML Urine Color LIGHT-YELLOW Urine Turbidity HAZY Urine pH 7.5 Urine Specific [place] 1.013 Urine Protein NEG mg/dL Urine Glucose (UA) NEG mg/dL Urine Ketones TRACE mg/dL Urine Occult Blood NEG Urine Nitrite NEG Urine Bilirubin NEG Urine Urobilinogen LESS THAN 2.0 MG/DL Urine Leukocyte Esterase NEG Urine WBC 2 /hpf Urine Squamous Epithelial Cells 22 /hpf Urine Mucus MOD /lpf Microscopic Urinalysis Comment CULT NOT INDICATED MDM Medical Decision Making Medical Screen Exam Complete: Yes Emergency Medical Condition: Yes Medical Record Reviewed: Yes Differential Diagnosis 17 weeks . Flank pain. Gallstone pain. Renal colic. UTI. Nausea. Narrative Course Patient is medically stable time exam. [id number] ultrasound performed by Dr. Worthy shows: Focused transabdominal ultrasound performed by me to document IEP and document well-being shows single to initiate , but 11-12 weeks in size, good heart motion, heart rate 170s. Labs show slight leukocytosis of 12.0. CBC is otherwise unremarkable. Chemistries remarkable for chloride of 108, BUN is 6, albumin is 3.0, quantitative hCG is [id number]. Urinalysis is hazy with a specific gravity of 1.013, trace of ketones, and moderate mucus otherwise negative. Renal ultrasound showed: CONCLUSION: Question stone lower pole left kidney. No evidence of acute obstruction. Patient felt to be medically stable with just nausea. No sign of active infection is noted. Left kidney stone is present, but no signs of obstruction are noted by radiologist. Patient is felt medically cleared for evaluation on the OB floor. Diagnosis Primary Impression: Nausea alone Additional Impressions: 17 weeks gestation of Back pain Qualified Codes: M54.5 - Low back pain Referrals: Service Manager Patient Instructions: General Instructions Additional Instructions: [id number] ultrasound performed by Dr. Worthy shows: Focused transabdominal ultrasound performed by ma to document IEP and document well-being shows single to initiate , but 11-12 weeks in size, good heart motion, heart rate 170s. Labs show slight leukocytosis of 12.0. CBC is otherwise unremarkable. Chemistries remarkable for chloride of 108, BUN is 6, albumin is 3.0, quantitative hCG is [id number]. Urinalysis is hazy with a specific gravity of 1.013, trace of ketones, and moderate mucus otherwise negative. Renal ultrasound showed: CONCLUSION: Question stone lower pole left kidney. No evidence of acute obstruction. Patient felt to be medically stable with just nausea. No sign of active infection is noted. Left kidney stone is present, but no signs of obstruction are noted by radiologist. Patient is felt medically cleared for evaluation on the OB floor. Scripts No Active Prescriptions or Reported Meds Disposition: 01 DISCHARGE HOME Condition: Stable Elmer Encinas Nov 12, 2017 15:41
[2017-11-12 16:00] LABS: ALT (GPT) 16 U/L (10-53); AST (GOT) 15 U/L (15-37); BICARBONATE 23.2 MEQ/L (21.0-32.0); BLOOD UREA NITROGEN 6 MG/DL (7-18); CHLORIDE 108 MEQ/L (98-107); CREATININE 0.55 MG/DL (0.50-1.00); GLOMERULAR FILTRATION RATE 135 ML/MIN (>89); GLUCOSE,RANDOM 86 MG/DL (74-106); SODIUM (NA) 141 MEQ/L (136-145)
[2017-11-12 16:09] LABS: AUTOMATED NEUTROPHIL # 8.9 TH/MM3 (1.8-7.7); BASOPHIL # 0.1 TH/MM3 (0-0.2); EOSINOPHIL # 0.4 TH/MM3 (0-0.4); HEMATOCRIT 39.5 % (35.0-46.0); HEMOGLOBIN 13.9 GM/DL (11.6-15.3); LYMPH % 16.9 % (9.0-44.0); MEAN CELL VOLUME 87.7 FL (80.0-100.0); MEAN CORPUSCULAR HEMOGLOBIN 30.9 PG (27.0-34.0); MEAN CORPUSCULAR HGB CONC 35.2 % (32.0-36.0); MONO % 4.8 % (0.0-8.0); MONOCYTE # 0.6 TH/MM3 (0-0.9); NEUT % 74.3 % (16.0-70.0); PLATELET COUNT 321 TH/MM3 (150-450); RED BLOOD COUNT 4.51 MIL/MM3 (4.00-5.30); RED CELL DISTRIBUTION WIDTH 13.5 % (11.6-17.2)
[2017-11-12 16:14] LABS: ALKALINE PHOSPHATASE 52 U/L (45-117); TOTAL BILIRUBIN ADULT 0.3 MG/DL (0.2-1.0); TOTAL PROTEIN 6.8 GM/DL (6.4-8.2)
[2017-11-12 16:18] VITALS: BP 119/59; PULSE 88; RESP 16; O2SAT 99
--- NOTE | 2017-11-12 16:30 | RADRPT ---
EXAM DATE/TIME: 11/12/2017 15:41 [facility] COMPARISON: US KIDNEY/RENAL/BLADDER, April 08, 2015, 13:57. INDICATIONS : Right flank pain. 17 weeks . History of kidney stones. MEDICAL HISTORY : Renal calculi. SURGICAL HISTORY : None. ENCOUNTER: Initial ACUITY: 3 days PAIN SCORE: 4/10 LOCATION: Bilateral flank MEASUREMENTS: RIGHT KIDNEY: 10.4 x 3.9 x 5.6 cm LEFT KIDNEY: 10.3 x 4.6 x 6.0 cm FINDINGS: RIGHT KIDNEY: Renal cortex is normal in thickness and echotexture. No hydronephrosis, stone, or mass. LEFT KIDNEY: Renal cortex is normal in thickness and echotexture. Question kidney stone in the lower pole of left kidney. No evidence of obstruction. BLADDER: Within normal limits given the degree of distension. CONCLUSION: Question stone lower pole left kidney. No evidence of acute obstruction. Cruz Pacheco MD on November 12, 2017 at 16:26 Board Certified Radiologist. This report was verified electronically.
--- NOTE | 2017-11-12 16:49 | PD ---
Data Data Last Documented VS Vital Signs Date Time Temp Pulse Resp B/P (MAP) Pulse Ox O2 Delivery O2 Flow Rate FiO2 11/12/17 16:18 88 16 119/59 (79) 99 Room Air 11/12/17 14:42 98.3 Orders Orders Beta Hcg (Quant/Titer) (11/12/17 14:59) Complete Blood Count With Diff (11/12/17 14:59) Comprehensive Metabolic Panel (11/12/17 14:59) Type And Screen (11/12/17 14:59) Urinalysis - C+S If Indicated (11/12/17 14:59) Iv Access Insert/Monitor (11/12/17 15:16) Ecg Monitoring (11/12/17 15:16) Oximetry (11/12/17 15:16) Ondansetron Inj (Zofran Inj) (11/12/17 15:30) Sodium Chlor 0.9% 1000 Ml Inj (Ns 1000 M (11/12/17 15:16) Sodium Chloride 0.9% Flush (Ns Flush) (11/12/17 15:30) Us Kidney/Renal/Bladder (11/12/17 ) Ed Poc Ultrasound (11/12/17 ) Metoclopramide Inj (Reglan Inj) (11/12/17 16:15) Thiamine Inj (Thiamine Inj) (11/12/17 16:15) Sodium Chlor 0.9% 1000 Ml Inj (Ns 1000 M (11/12/17 16:15) Labs Laboratory Tests Test 11/12/17 15:24 White Blood Count 12.0 TH/MM3 Red Blood Count 4.51 MIL/MM3 Hemoglobin 13.9 GM/DL Hematocrit 39.5 % Mean Corpuscular Volume 87.7 FL Mean Corpuscular Hemoglobin 30.9 PG Mean Corpuscular Hemoglobin Concent 35.2 % Red Cell Distribution Width 13.5 % Platelet Count 321 TH/MM3 Mean Platelet Volume 8.0 FL Neutrophils (%) (Auto) 74.3 % Lymphocytes (%) (Auto) 16.9 % Monocytes (%) (Auto) 4.8 % Eosinophils (%) (Auto) 3.0 % Basophils (%) (Auto) 1.0 % Neutrophils # (Auto) 8.9 TH/MM3 Lymphocytes # (Auto) 2.0 TH/MM3 Monocytes # (Auto) 0.6 TH/MM3 Eosinophils # (Auto) 0.4 TH/MM3 Basophils # (Auto) 0.1 TH/MM3 CBC Comment DIFF FINAL Differential Comment Blood Urea Nitrogen 6 MG/DL Creatinine 0.55 MG/DL Random Glucose 86 MG/DL Total Protein 6.8 GM/DL Albumin 3.0 GM/DL Calcium Level 9.0 MG/DL Alkaline Phosphatase 52 U/L Aspartate Amino Transf (AST/SGOT) 15 U/L Alanine Aminotransferase (ALT/SGPT) 16 U/L Total Bilirubin 0.3 MG/DL Sodium Level 141 MEQ/L Potassium Level 3.7 MEQ/L Chloride Level 108 MEQ/L Carbon Dioxide Level 23.2 MEQ/L Anion Gap 10 MEQ/L Estimat Glomerular Filtration Rate 135 ML/MIN Human Chorionic Gonadotropin, Quant 86946 MIU/ML MDM Supervised Visit with BISHOP: Yes Narrative Course The history, exam, and medical decision-making in the associated mid-level provider note were completed with my assistance. I reviewed and agree with the findings presented. I attest that I had a [id number] encounter with the patient on the same day, and personally performed and documented my assessment and findings in the medical record. *My assessment and Findings: 27-year-old woman, , with some abdominal cramping, vomiting, and some loose stools. Since been sick with similar symptoms. Says she is not really been able to keep anything down. She overall looks well. Check kidney stones in the past she has some back pain. Will check labs, urine. I did bedside ultrasound and the is reassuring. Recommend supportive treatment. Procedures Procedure Narrative [id number] ultrasound: Focused transabdominal ultrasound performed by me to document IEP and document well-being shows single to initiate , but 11-12 weeks in size, good heart motion, heart rate 170s. Scripts No Active Prescriptions or Reported Meds Cruz Worthy MD Nov 12, 2017 16:49
[2017-11-12 17:35] LABS: BILIRUBIN, URINE NEG (NEG); BLOOD, URINE NEG (NEG); GLUCOSE,URINE NEG (NEG); KETONE, URINE TRACE mg/dL (NEG); MUCUS URINE MOD /lpf (OCC); NITRITE,URINE NEG (NEG); PH, URINE 7.5 (5.0-8.5); SQUAMOUS EPITHELIAL CELL URINE 22 /hpf (0-5); URINE COLOR LIGHT-YELLOW (YELLW/STRAW); URINE LEUKOCYTE ESTERASE NEG (NEG)
== END | disposition home or self-care (01) ==
LOC: HOBED 14:40
DX: O26.892 Other specified pregnancy related conditions, second trimester (principal); M54.5 Low back pain; Z3A.17 17 weeks gestation of pregnancy
CPT/HCPCS: 76775; 80053; 81001; 84702; 85025; 86850; 86900; 86901; 96361; 96365; 96375; 99284; J2405; J2765; J3411; J7030